=== PATIENT | male | born 1990 | race Caucasian/White ===

== ENCOUNTER 2018-05-29 15:29 | Inpatient (IN) | payer OTHER ==
[~2018-05-29] VITALS: Ht 177.8 cm; Wt 60.9 kg
--- NOTE | ~2018-05-29 | EKG ---
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
[2018-05-29 16:00] VITALS: BP 140/79
--- NOTE | 2018-05-29 16:45 | NUR ---
PATIENT MEETS [facility], CINA=15. PATIENT IS INTERESTED IN INPATIENT TREATMENT. [facility] WILL SEND THE PATIENT'S ASSESSMENT TO A FEW DIFFERENT FACILITIES TO DETERMINE BED AVAILABILITY. NIDIA SINGH MS REINSURANCE ACCOUNTANT
--- NOTE | 2018-05-29 17:00 | NUR ---
Time: 1699 A 27 year old MALE admitted to under services of ANASTASIA HILL DO. Pt. arrived via ambulatory from [place]. Chief complaint: [facility]. PHYLLIS BERGERON
[2018-05-29 17:09] LABS: BASO % 0.5 % (0.0-1.0); EOS # 0.3 10*3/uL (0.0-0.4); HEMATOCRIT 43.3 % (42.0-52.0); HEMOGLOBIN 14.2 g/dl (14.0-18.0); LYMPH # 2.4 10*3/uL (1.3-4.4); MEAN CORPUSCULAR HGB 28.9 pg (27.0-31.0); MEAN CORPUSCULAR HGB CONC 32.8 g/dl (33.0-37.0); MEAN PLATELET VOLUME 8.1 fl (9.6-12.3); MONO # 0.5 10*3/uL (0.1-1.0); MONO % 6.8 % (3.0-9.0); NEUT # 4.5 10*3/uL (2.3-7.9); NEUT % 57.3 % (47.0-73.0); PLATELET COUNT AUTOMATED 357 10*3/uL (130-400); RED BLOOD COUNT 4.92 10*6/uL (4.50-5.90); RED CELL DISTRI WIDTH 14.1 % (0-14.5); WHITE BLOOD COUNT 7.8 10*3/uL (4.8-10.8)
[2018-05-29 17:24] LABS: ALBUMIN 3.5 gm/dl (3.1-4.5); ALKALINE PHOSPHATASE 129 U/L (45-117); BUN 6 mg/dl (7-24); CHLORIDE 101 mmol/L (98-107); CREATININE 0.71 mg/dL (0.70-1.30); POTASSIUM 4.4 mmol/L (3.5-5.1); SGOT/AST 69 IU/L (3-35); SGPT/ALT 168 U/L (12-78); SODIUM 138 mmol/L (136-145)
[2018-05-29 17:25] LABS: ETHYL ALCOHOL < 3.0 mg/dl (<3)
--- NOTE | 2018-05-29 17:41 | NUR ---
ROUTINE MEDS AND PRNS GIVEN FOR MULTIPLE COMPLAINTS, NAUSEA, CRAMPING, ANXIETY. SEE EMAR.
[2018-05-29 18:11] LABS: BILIRUBIN NEGATIVE (NEGATIVE); BLOOD NEGATIVE (NEGATIVE); CLARITY SL CLOUDY (CLEAR); COLOR YELLOW (YELLOW); GLUCOSE NEGATIVE (NEGATIVE); KETONE NEGATIVE (NEGATIVE); LEUKO ESTERASE NEGATIVE (NEGATIVE); NITRITE NEGATIVE (NEGATIVE); SPECIFIC GRAVITY <= 1.005 (1.005-1.030); UROBILINOGEN 0.2 E.U./dl (0.2-1.0)
[2018-05-29 18:20] LABS: URINE AMPHETAMINES < 1000 (1000ng/ml); URINE BARBITURATES < 200 (200ng/ml); URINE BENZODIAZEPINES < 200 (200ng/ml); URINE CANNABINOIDS (THC) > 50 (50ng/ml); URINE COCAINE > 300 (300ng/ml); URINE METHADONE < 300 (300ng/ml); URINE OPIATES < 300 (300ng/ml)
[2018-05-29 18:21] LABS: URINE PHENCYCLIDINE < 25 (25ng/ml)
[2018-05-29 18:23] LABS: BACTERIA TRACE; WBC 0-2 wbc/hpf (0-5)
--- NOTE | 2018-05-29 19:31 | NUR ---
ROBAXIN GIVEN PER ORDER FOR MUSCLE CRAMPING. SEE MAR.
[2018-05-29 20:00] VITALS: BP 114/54
--- NOTE | 2018-05-29 21:22 | NUR ---
ROBAXIN HELPED WITH MUSCLE ACHES BUT PT. C/O SWEATING AND RESTLESSNESS OF LEGS AND NOT ABLE TO SLEEP. REQUIP AND TRAZADONE GIVEN PER ORDER FOR WITHDRAWL SYMPTOMS.
--- NOTE | 2018-05-29 22:10 | NUR ---
REQUIP EFFECTIVE FOR RESTLESSNESS PER PT.
--- NOTE | 2018-05-29 23:14 | NUR ---
PT. C/O CAN'T SLEEP, VISTARIL GIVEN PER ORDER FOR AGGITATION AND 2ND TRAZADONE GIVEN PER ORDER FOR INSOMNIA AND INEFFECTIVENESS OF FIRST DOSE.
[2018-05-30] VITALS: BP 91/43
--- NOTE | 2018-05-30 03:10 | NUR ---
24 HR chart check completed.
--- NOTE | 2018-05-30 04:51 | NUR ---
C/O SWEATING, BEING NAUSEATED, WANTING SOMETHING FOR ANXIETY. ZOFRAN GIVEN FOR NAUSEA AND BENTYL ALSO VISTARIL GIVEN FOR ANXIETY PER ORDER FOR WITHDRAWL SYMPTOMS.
--- NOTE | 2018-05-30 05:15 | NUR ---
VISTARIL, BENTYL AND ZOFRAN EFFECTIVE FOR WITHDRAWL SYMPTOMS.
[2018-05-30 08:00] VITALS: BP 101/61
[2018-05-30 12:00] VITALS: BP 90/51
[2018-05-30 16:00] VITALS: BP 96/54
--- NOTE | 2018-05-30 17:14 | NUR ---
C/O TROUBLE URINATING. STATES HE IS HAVING TO GO FREQUENTLY AND THAT IT FEELS UNCOMFORTABLE. DR SRINIVASAN MADE AWARE.
--- NOTE | 2018-05-30 17:19 | NUR ---
C/O NAUSEA, ANXIETY AND LEG CRAMPS. GIVEN ZOFRAN, VISTARIL AND ROBAXIN. WILL CONT TO MONITOR. CALL LIGHT IN REACH.
--- NOTE | 2018-05-30 18:10 | NUR ---
C/O NAUSEA, ANXIETY, AND LEG CRAMPS. GIVEN ZOFRAN, VISTARIL AND ROBAXIN. WILL CONT TO MONITOR. CALL LIGHT IN REACH.
[2018-05-30 20:00] VITALS: BP 141/53
--- NOTE | 2018-05-30 20:11 | NUR ---
TRAZODONE GIVEN PER PATIENT REQUEST FOR INSOMNIA. PT STATED HE "WANTED TO SLEEP" WILL ASSESS IN THIRTY MINUTES FOR EFFECTIVENESS.
--- NOTE | 2018-05-30 20:41 | NUR ---
TRAZODONE WAS EFFECTIVE FOR INSOMNIA PER PT REQUEST. PATIENT SLEEPING COMFORTABLY.
[2018-05-31] VITALS: BP 107/64
--- NOTE | 2018-05-31 03:20 | NUR ---
24 HR chart check completed.
[2018-05-31 08:00] VITALS: BP 98/49
--- NOTE | 2018-05-31 09:45 | NUR ---
PT REQUESTED AND GIVEN VISTARIL FOR ANXIETY AND ROBAXIN FOR MUSCLE ACHES WILL MONITOR
[2018-05-31 12:00] VITALS: BP 102/57
--- NOTE | 2018-05-31 12:00 | NUR ---
PT RESTING IN BED, EYES CLOSED ROBAXIN AND VISTARIL APPEAR EFFECTIVE. WILL MONITOR
[2018-05-31 16:00] VITALS: BP 123/65
--- NOTE | 2018-05-31 16:15 | NUR ---
PT CONTINUES TO REST QUIETLY IN BED. NO VOICED C/O. WILL MONITOR
--- NOTE | 2018-05-31 19:03 | NUR ---
PT REQUESTED AND GIVEN MOTRIN FOR MUSCLE ACHES WILL MONITOR
--- NOTE | 2018-05-31 19:06 | NUR ---
PT REQUESTED AND GIVEN VISTARIL FOR C/O ANXIETY WILL MONITOR
--- NOTE | 2018-05-31 19:15 | NUR ---
PT RESTING QUIETLY IN BED DURING BEDSIDE SHIFT REPORT. PT REQUESTING SLEEPING PILL. PT TEACHING GIVEN ON TIMES FOR SLEEP AIDES. PT ACKNOWLEDGES. CALL LIGHT IN REACH.
[2018-05-31 20:00] VITALS: BP 136/91
--- NOTE | 2018-05-31 21:35 | NUR ---
PT C/O MUSCLE ACHES AND INSOMNIA ALONG W/DIAPHORESIS AND AUDITORY HALLUCINATIONS AND PARANOIA. PT TEACHING GIVEN ON S/S OF WITHDRAWALS. MEDICATED W/ROBAXIN AND TRAZADONE. CALL LIGHT IN REACH. WILL MONITOR FOR EFFECTIVENESS.
--- NOTE | 2018-05-31 23:00 | NUR ---
PT RESTING QUIETLY IN BED W/EYES CLOSED. PRN MEDS EFFECTIVE. CALL LIGHT IN REACH.
[2018-06-01] VITALS: BP 98/45
[2018-06-01 06:27] LABS: BASO % 0.5 % (0.0-1.0); EOS # 0.4 10*3/uL (0.0-0.4); EOS % 6.5 % (1.0-4.0); HEMOGLOBIN 12.1 g/dl (14.0-18.0); LYMPH # 2.2 10*3/uL (1.3-4.4); LYMPH % 39.5 % (27.0-41.0); MEAN CELL VOLUME 88.3 fl (80.0-94.0); MEAN CORPUSCULAR HGB 28.9 pg (27.0-31.0); MEAN CORPUSCULAR HGB CONC 32.7 g/dl (33.0-37.0); MEAN PLATELET VOLUME 8.1 fl (9.6-12.3); MONO # 0.6 10*3/uL (0.1-1.0); MONO % 10.2 % (3.0-9.0); NEUT # 2.4 10*3/uL (2.3-7.9); NEUT % 42.9 % (47.0-73.0); PLATELET COUNT AUTOMATED 239 10*3/uL (130-400); RED BLOOD COUNT 4.19 10*6/uL (4.50-5.90); WHITE BLOOD COUNT 5.7 10*3/uL (4.8-10.8)
[2018-06-01 06:42] LABS: CREATININE 0.57 mg/dL (0.70-1.30)
[2018-06-01 08:00] VITALS: BP 109/66
--- NOTE | 2018-06-01 08:17 | NUR ---
PT RESTING IN BED. NO DISTRESS NOTED. WILL MONITOR
--- NOTE | 2018-06-01 08:46 | NUR ---
PT REQUESTED AND GIVEN ROBAXIN FOR MUSCLE ACHES AND VISTARIL FOR ANXIETY WILL MONITOR
[2018-06-01] MEDS ORDERED: ZOFRAN 4 MG ED2 TAB PO (11:01)
[2018-06-01] MEDS ORDERED: NATURE'S BLEND F1 MG PO (11:01)
[2018-06-01] MEDS ORDERED: NATURE'S BLEND100 M2 PO (11:01)
[2018-06-01] MEDS ORDERED: METHOCARBAMOL750 M1 PO (11:01)
[2018-06-01] MEDS ORDERED: THERA TABLET400 MCG PO (11:01)
--- NOTE | 2018-06-01 11:10 | NUR ---
PATIENT HAS BEEN ACCEPTED TO GO TO [facility] FOR INPATIENT TREATMENT. PATIENT IS SCHEDULED TO BE ADMITTED ON SATURDAY, JUNE 02, 2018 BY 11AM. PATIENT IS AWARE AND AGREES TO HIS AFTERCARE PLAN. NIDIA SINGH MS CRIME SPECIALIST
--- NOTE | 2018-06-01 11:36 | NUR ---
Discharge instructions reviewed with patient/family. Patient receptive and verbalizes understanding. Follow-up care arranged. Written instructions given to patient/family. XANDER CASTORENA
[2018-06-01 12:00] VITALS: BP 124/68
== END 2018-06-01 11:23 | disposition home or self-care (01) | DRG 897 ==
LOC: 5E 15:29
PROVIDERS: Internal Medicine Nephrology; ADMIT Internal Medicine
DX: F11.23 Opioid dependence with withdrawal (principal); F41.9 Anxiety disorder, unspecified; F17.210 Nicotine dependence, cigarettes, uncomplicated; F12.10 Cannabis abuse, uncomplicated; R00.0 Tachycardia, unspecified; R74.0 Nonspecific elevation of levels of transaminase and lactic acid dehydrogenase [LDH]; F14.10 Cocaine abuse, uncomplicated; Z71.6 Tobacco abuse counseling; Z90.49 Acquired absence of other specified parts of digestive tract